=== PATIENT | male | born 1960 | race Caucasian/White ===

== ENCOUNTER 2018-04-19 05:48 | Observation (INO) | payer OTHER ==
--- NOTE | 2018-04-17 18:57 | GHP ---
[f rep st] PREOP HISTORY AND PHYSICAL COMPLAINT: Right knee pain. HISTORY OF PRESENT ILLNESS: The patient is a 57-year-old male with a long history of right knee pain worsening with use and with time despite multiple conservative measures. X-ray exam reveals bone-on -bone osteoarthritic changes. He wishes to have surgery in order to resolve the problem. ALLERGIES: He lists no prior drug allergies. CURRENT MEDICATION: Included atorvastatin. PRIOR MEDICAL PROBLEMS: Include arthritis, blood clots, reflux, and gout. PRIOR SURGERIES: Include orthopedic surgery x3. SOCIAL HISTORY: He has never been a smoker. Moderate alcohol intake. PHYSICAL EXAMINATION: HEENT: Pupils equal, round and reactive to light. CHEST: Clear to auscultat ion. HEART: Regular rate and rhythm. ABDOMEN: Soft and nontender. EXTREMITIES: The patient has a valgus deformity across his knee as well as palpable bone spurring noted laterally. IMAGING DATA: X-ray exams revealed aaax-id-cimv arthritic changes. Wishes to have surgery in order to resolve the problem. ASSESSMENT: The patient is status post right knee osteoarthritis. PLAN: To take him to the operating room to undergo a right total knee replacement. /[id number]/MODL
[2018-04-19] MEDS ORDERED: LIDOCAINE 1% 2 ML INJ ID PRN (06:14)
[2018-04-19] MEDS ORDERED: LR 1,000 ML IV ONE (06:14)
[2018-04-19] MEDS ORDERED: POLYMYXIN B SULFATE 500,000 UNIT/10 ML SYR IRR ONE (06:40)
[2018-04-19] MEDS ORDERED: THROMBIN (BOVINE) 5,000 UNIT VIAL TP ONE ×2 (06:40→10:37)
[2018-04-19] MEDS ORDERED: CALCIUM CHLORIDE 1 GM/10 ML INJ ONE (06:40)
[2018-04-19] MEDS ORDERED: BUPIVACAINE/EPI 0.5% 30 ML SDV ONE (06:40)
[2018-04-19] MEDS ORDERED: BACITRACIN 50,000 UNITS/10 ML SYR IRR ONE (06:40)
[2018-04-19] MEDS ORDERED: ACETAMINOPHEN 500 MG TAB PO ONE (06:50)
[2018-04-19] MEDS ORDERED: ceFAZolin 2 GM/SWFI 2 GM/20 ML SYR IVP ONE (06:50)
[2018-04-19] MEDS ORDERED: ROPIVACAINE 0.2% 80 MG, EPINEPHrine 0.2 MG, KETOROLAC TROMETHAMINE 30 MG, morphINE 10 M... IU ONE (06:50)
[2018-04-19] MEDS ORDERED: TRANEXAMIC ACID 3,000 MG in NS (SYRINGE) 50 ML IRR ONE (06:50)
[2018-04-19] MEDS ORDERED: PREGABALIN 150 MG CAP PO ONE (06:50)
--- NOTE | 2018-04-19 06:50 | PDHPUP ---
History & Physical Update H&P update statement: This history and physical update is based on an assessment of the patient which was completed after admission or registration (within 24 hours), but prior to the surgery/procedure. H&P update: H&P reviewed & patient examined, no change in patient's condition since H&P completed
[2018-04-19] MEDS ORDERED: MIDAZOLAM 2 MG/2 ML VIAL IVP ONE (06:55)
--- NOTE | 2018-04-19 06:58 | PDANEPAE ---
ANE History of Present Illness DJD R knee s/f R TKA ANE Past Medical History - Cardiovascular History Hx Hypertension: No Hx Arrhythmias: No Hx Chest Pain: No Hx Coronary Artery / Peripheral Vascular Disease: No Hx CHF / Valvular Disease: No Hx Palpitations: No Cardiovascular History Comment: BORDERLINE HTN, CHOL RX - Pulmonary History Hx COPD: No Hx Asthma/Reactive Airway Disease: No Hx Recent Upper Respiratory Infection: No Hx Oxygen in Use at Home: No Hx Sleep Apnea: No Sleep Apnea Screening Result - Last Documented: Negative Pulmonary History Comment: NO CIG SMOKING: CHEWS TOBACCO -1 CAN/2 DAYS. - Neurologic History Hx Cerebrovascular Accident: No Hx Seizures: No Hx Dementia: No - Endocrine History Hx Diabetes: No - Renal History Hx Renal Disorders: No - Liver History Hx Hepatic Disorders: No - Neurological & Psychiatric Hx Hx Neurological and Psychiatric Disorders: No - Cancer History Hx Cancer: No - Congenital Disorder History Hx Congenital Disorders: No - GI History Hx Gastrointestinal Disorders: Yes Gastrointestinal History Comment: GERD-ZANTAC PRN - Other Health History Other Health History: OA -BILAT KNEE PAIN -ALEJANDRA R KNEE; DVT S/P TRAUMA KNEE - ANTICOAGS X 6 MOS. - Chronic Pain History Chronic Pain: Yes (KNEES) - Surgical History Prior Surgeries: L KNEE COMPLETE RECONSTRUCTION 1977;. R KNEE SX X4;. APPY CHILD ANE Review of Systems Review of Systems: - Exercise capacity METS (RN): 4 METS ANE Patient History - Allergies Allergies/Adverse Reactions: No Known Allergies Allergy (Verified 04/06/18 16:09) - Home Medications Home medications: home medication list seen and reviewed Home Medications: Acetaminophen [Tylenol 325mg (*)] 325 mg PO DAILY PRN 04/06/18 [Last Taken Unknown] Atorvastatin Calcium [Lipitor 10 mg (*)] 10 mg PO HS 04/06/18 [Last Taken Unknown] Herbals/Supplements -Info Only 1 ea PO DAILY 04/06/18 [Last Taken Unknown] Ranitidine HCl [Zantac] 150 mg PO DAILY PRN 04/06/18 [Last Taken Unknown] - NPO status NPO Status: no food or drink >8 hours NPO Since - Liquids (Date): 04/18/18 NPO Since - Liquids (Time): 23:00 NPO Since - Solids (Date): 04/18/18 NPO Since - Solids (Time): 19:00 - Anes Hx Anes Hx: no prior problems - Smoking Hx Smoking Status: Current every day smoker (does not smoke-chewing tobacco only) Marijuana use: No - Alcohol Use Alcohol Use: Occasionally - Family Anes Hx Family Anes Hx: none ANE Labs/Vital Signs - Labs - CBC WBC: reivewed and okay - Vital Signs Blood Pressure: 148/94 Heart Rate: 58 Respiratory Rate: 18 O2 Sat (%): 93 Height: 193.04 cm Weight: 122.47 kg ANE Physical Exam - Airway Neck exam: FROM Mallampati Score: Class 2 Mouth exam: normal dental/mouth exam - Pulmonary Pulmonary: no respiratory distress - Cardiovascular Cardiovascular: regular rate and rhythym - ASA Status ASA Status: II ANE Anesthesia Plan Anesthesia Plan: spinal
[2018-04-19] MEDS ORDERED: PROPOFOL/EMULSION 500 MG/50 ML BOTTLE IV ONE ×2 (07:20→07:55)
[2018-04-19] MEDS ORDERED: fentaNYL 100 MCG/2 ML INJ ONE (07:20)
[2018-04-19] MEDS ORDERED: ceFAZolin 2 GM/DEXTROSE 100 ML IV ONE (07:30)
[2018-04-19] MEDS ORDERED: LIDOCAINE 2% JELLY 5 ML TUBE ONE (07:30)
[2018-04-19] MEDS ORDERED: DEXAMETHASONE 4 MG/ML VIAL ONE (07:53)
[2018-04-19] MEDS ORDERED: ONDANSETRON 4 MG/2 ML VIAL ONE (07:53)
[2018-04-19] MEDS ORDERED: ALBUTEROL 3 ML DEYVIAL IH PRN (08:06)
[2018-04-19] MEDS ORDERED: MEPERIDINE 25 MG/0.5 ML AMP IVP PRN (08:06)
[2018-04-19] MEDS ORDERED: PROMETHAZINE HCL 25 MG/ML INJ IVP PRN ×2 (08:06→09:03)
[2018-04-19] MEDS ORDERED: LR 500 ML IV PRN (08:06)
[2018-04-19] MEDS ORDERED: ONDANSETRON 4 MG/2 ML VIAL IVP PRN ×2 (08:06→09:03)
[2018-04-19] MEDS ORDERED: PHENYLEPHRINE HCL 100 MCG/ML SYR IVP PRN (08:06)
[2018-04-19] MEDS ORDERED: DEXAMETHASONE 4 MG/ML VIAL IVP PRN (08:06)
[2018-04-19] MEDS ORDERED: fentaNYL 100 MCG/2 ML INJ IVP PRN (08:06)
[2018-04-19] MEDS ORDERED: METOCLOPRAMIDE 10 MG/2 ML VIAL IVP PRN ×2 (08:06→09:03)
[2018-04-19] MEDS ORDERED: oxyCODONE IR 5 MG TAB PO PRN (08:06)
[2018-04-19] MEDS ORDERED: NALOXONE HCL 0.4 MG/ML INJ IVP PRN (08:06)
[2018-04-19] MEDS ORDERED: HYDROCODONE/APAP 5/325 TAB PO PRN (08:06)
[2018-04-19] MEDS ORDERED: LABETALOL HCL 5 MG/ML 20 ML MDV IVP PRN (08:06)
[2018-04-19] MEDS ORDERED: PROPOFOL 200 MG/20 ML VIAL ONE ×2 (08:29→08:42)
[2018-04-19] MEDS ORDERED: ONDANSETRON DISINTEGRATING 4 MG TAB PO PRN (09:03)
[2018-04-19] MEDS ORDERED: MAGNESIUM HYDROXIDE 30 ML UDCUP PO PRN (09:03)
[2018-04-19] MEDS ORDERED: LACTULOSE 20 GM/30 ML UDCUP PO PRN (09:03)
[2018-04-19] MEDS ORDERED: BISACODYL 10 MG SUPP PR PRN (09:03)
[2018-04-19] MEDS ORDERED: POLYETHYLENE GLYCOL 3350 17 GM PKT PO PRN (09:03)
[2018-04-19] MEDS ORDERED: diphenhydrAMINE 25 MG CAP PO PRN (09:03)
[2018-04-19] MEDS ORDERED: TEMAZEPAM 15 MG CAP PO PRN (09:03)
[2018-04-19] MEDS ORDERED: DIPHENOXYLATE/ATROPINE LOMOTIL 1 TAB PO PRN (09:03)
[2018-04-19] MEDS ORDERED: TAPENTADOL HCL 50 MG TAB PO PRN (09:03)
[2018-04-19] MEDS ORDERED: PROMETHAZINE HCL 25 MG SUPPR PR PRN (09:03)
--- NOTE | 2018-04-19 09:04 | POSTOPPROG ---
Post Op Note Date of Operation: 04/19/18 Surgeon: Emmy Cantu Operations Support Professionals: sebastien Anesthesiologist: mc Anesthesia: Epidural, IV Sedation Pre-op Diagnosis: r knee oa Procedure: r tkr Inf/Abcess present in the surg proc area at time of surgery?: No Depth: Deep Incisional (Fascial) EBL: 100-500
[2018-04-19] MEDS ORDERED: NON-FORMULARY NEW DRUG (Ranitidine Hcl [Zantac] 150 MG) PO PRN (09:06)
[2018-04-19] MEDS ORDERED: LR 1,000 ML IV SCH (09:30)
[2018-04-19] MEDS ORDERED: FAMOTIDINE 20 MG TAB PO PRN (09:45)
--- NOTE | 2018-04-19 09:57 | GOP ---
[f rep st] OPERATIVE REPORT DATE OF OPERATION: 04/19/2018 SURGEON: Emmy Cantu MD BOTTLED BEVERAGE INSPECTOR: Erick Yadav, CSFA, LSA, whose presence was medically necessary. ANESTHESIA: Epidural plus IV sedation. Adductor nerve block per surgeon's request. PREOPERATIVE DIAGNOSIS: Right knee osteoarthritis. POSTOPERATIVE DIAGNOSIS: Right knee osteoarthritis. PROCEDURE PERFORMED: Right total knee arthroplasty. FINDINGS: INDICATIONS: This is a 57-year-old male with a several-month history of right knee pain worsening wi th use and with time despite multiple conservative measures. X-ray exam reveals osteoarthritic torres es. He wishes to have surgery in order to resolve the problem. DESCRIPTION OF PROCEDURE: Patient brought to the operating room after the right side had been identi fied as the correct side by the patient, nurse and physician. Once in the operating room he was give n an epidural nerve block as well as an adductor nerve block. He was then placed supine on the opera ting room table and given IV sedation. A tourniquet was placed on the upper portion of the right thi gh with right lower extremity then sterilely prepped and draped in the usual fashion using NELDA/soluti on. Once prepped and draped, the limb was exsanguinated, tourniquet inflated to 250 mmHg. Incision was made on the anterior portion of the knee 1 handbreadth above and below the patella, with sharp di ssection carried down through the skin and subcutaneous layers and bleeding controlled using electroc autery. A medial parapatellar approach was used at the extensor mechanism, with the patella brought to the side but not everted. The Hoffa pad, the ACL as well as medial and lateral meniscus were mario arya. He was noted to have grade 2 chondral changes throughout the knee. A drill hole was made 1 cm anterior to the intercondylar notch with intramedullary guide placed within the femoral canal. The e nd cutting guide was set at 5 degrees of valgus and set to remove 10 mm of bone. Once pinned into pl rodney the intramedullary guide was removed and oscillating saw was used to remove the distal end of the femur. Osteotome was used to remove the remaining cartilage on the posterior femoral condyles. The sizing guide was placed onto the knee. Once pinned into place, measurements were taken though a siz e 7 seemed to fit best. Therefore, the guide was removed and a size 7, 4-in-1 cutting block was put into place. The anterior-posterior chamfer cuts were made. There was no notching of the anterior fe mur. Size 7 trial was put into place. The knee was able to achieve full extension, suggesting adequ ate amount of bone had been removed. The knee was brought back to flexion and lug holes were drilled for the femoral component. Femoral trial was then removed. The knee was brought to full flexion, t ibia subluxed anteriorly, and an external tibial guide was put into place, set in neutral varus valgu s, slight posterior slope. Set to remove 2 mm of bone from the low side of the tibia which was the l ateral side. Once pinned into place, a drop franklin was used to ensure proper alignment and a locking pi n was placed in the tibial cutting guide. Oscillating saw was used to remove the proximal portion of the tibia. Once achieving good guide removal of the bone a trial femur, tibia, and polyethylene ai er was put into place. The knee was able to achieve full extension, suggesting an adequate amount of bone being removed. The knee was brought back to full flexion where the trial was removed. Multipl e trials were placed on the proximal tibia and a size 7 seemed to fit best. It was placed in slight external rotation pinned into place. The keel punch passed through the guide without hitting any the hardware that had been retained within his tibia. The press-fit drill guide was then placed on the tibia and drill holes were made for press-fit component. The leg was brought to full extension. The tibia was then everted and held in place with towel clamps. The patella was measured to be 28 mm in thickness. Oscillating saw was used to remove the posterior portion of the patella, leaving 16 mm o f bone. Multiple sizes were trialed on the cut surface of bone, noted a 38 mm button seemed to fit b est. Therefore, a 38 mm guide was put in place and lug holes drilled for the patellar component. Al l surfaces were then thoroughly irrigated using a bulb syringe. With a size 7 Tritanium triathlon ti bial component put into place and a size 7 right cruciate retaining triathlon femoral press-fit compo nent was put into place. A trial liner was placed in the tibial tray. The knee brought to full exte nsion in order to pressurize the components. A 38 mm triathlon Tritanium asymmetric patella was then clamped into place and noted to fit securely. Multiple trials were placed in the tibial tray noted that an 11 mm insert seemed to fit best. Therefore a size 7, 11 mm triathlon X3 polyethylene compone nt was put into place and noted to fit securely. The knee was then injected into the posterior capsu le along the periosteum with joint cocktail and even in the extensor mechanism. Tranexamic acid was irrigated through the wound. Tourniquet was deflated at 42 minutes. Any excess bleeding was control led using electrocautery. The wound was then closed using 0 Vicryl suture in a figure of 8 type stit ch for the extensor mechanism and plasma gel placed intra-articularly. 0 Vicryl and 2-0 Vicryl sutur e used to close the subcutaneous layers, and a 3-0 V-Loc suture in a running subcuticular stitch was used to close the skin. 30 cc of Marcaine was infused around the incision itself. The wound was the n dressed with Steri-Strips, Xeroform, 4 x 4, Kerlix. Leg was completely undraped in the operating r oom, tourniquet removed from the thigh and an Rodney wrap placed around the knee. The patient was then transferred onto a stretcher, and sent to recovery room in good condition. TOURNIQUET TIME: 42 minutes. /[id number]/MODL
[2018-04-19] MEDS: traMADol 50 MG TAB PO SCH ×2 (11:57→17:20)
[2018-04-19] MEDS: ACETAMINOPHEN 325 MG TAB PO SCH ×2 (11:57→17:20)
[2018-04-19] MEDS: KETOROLAC 15 MG/1 ML SDV IVP SCH ×2 (11:57→17:19)
--- NOTE | 2018-04-19 12:05 | POSTANESTH ---
Post Anesthetic Evaluation Cardiovascular Status: Normal, Stable Respiratory Status: Tx Decrease in SpO2 (O2 by NC 2L) Level of Consciousness/Mental Status: Can Participate in Eval Pain Control: Adequate, Prn Tx Ordered Nausea/Vomiting Control: Adequate, Prn Tx Ordered Complications Possibly Related to Anesthesia: None Noted
[2018-04-19] MEDS: oxyCODONE IR 5 MG TAB PO PRN ×2 (13:02→22:45)
[2018-04-19] MEDS: ceFAZolin 2 GM/DEXTROSE 100 ML IV SCH ×2 (14:26→22:46)
[2018-04-19] MEDS ORDERED: ATORVASTATIN CALCIUM 10 MG TAB PO SCH (21:00)
[2018-04-19] MEDS: SENNOSIDES/DOCUSATE SODIUM TAB PO SCH (22:46)
[2018-04-19] MEDS: FAMOTIDINE 20 MG TAB PO SCH (22:46)
[2018-04-19] MEDS: CYCLOBENZAPRINE 10 MG TAB PO PRN (22:46)
[2018-04-20] MEDS: KETOROLAC 15 MG/1 ML SDV IVP SCH ×2 (01:05→05:44)
[2018-04-20] MEDS: traMADol 50 MG TAB PO SCH ×3 (01:06→12:32)
[2018-04-20] MEDS: ACETAMINOPHEN 325 MG TAB PO SCH ×3 (01:06→12:32)
[2018-04-20] MEDS: CYCLOBENZAPRINE 10 MG TAB PO PRN (07:16)
[2018-04-20] MEDS: oxyCODONE IR 5 MG TAB PO PRN ×3 (08:02→16:08)
[2018-04-20] MEDS: FAMOTIDINE 20 MG TAB PO SCH (08:02)
[2018-04-20] MEDS: SENNOSIDES/DOCUSATE SODIUM TAB PO SCH (08:02)
[2018-04-20] MEDS ORDERED: RIVAROXABAN 10 MG TAB PO SCH (09:00)
[2018-04-20 15:07] VITALS: BP 125/80
--- NOTE | 2018-04-20 15:14 | SOAPPROG ---
SOAP Progress Note Assessment/Plan: Assessment: Plan: Subjective: states he's ready for home dressing C&D with foot NVI DC to home Objective: Vital Signs Temp Pulse Resp BP Pulse Ox 36.9 C 60 14 125/80 H 94 04/20/18 15:06 04/20/18 15:06 04/20/18 15:06 04/20/18 15:06 04/20/18 15:06 Laboratory Results 04/20/18 04:43 04/19/18 04/20/18 04/21/18 05:59 05:59 05:59 Intake Total 3885 Output Total 6214 425 Balance 760 -425 ICD10 Worksheet Patient Problems: Problems Problem Status Onset Arthritis of knee Acute - ICD10 Problem Qualifiers (1) Arthritis of knee
--- NOTE | 2018-04-20 15:42 | ASMTCMCOM ---
CM Note CM Note Notes: PT rec home/outpatient. Pt pre-arranged with [facility] and is interested in home PT. Pt medically stable for d/c with [facility] PT. Referral and d/c meds sent in [employer]. [facility] to follow up with Dr Cantu office for orders. Date Signed: 04/20/2018 03:41 PM Electronically Signed By:ALY De Anda
--- NOTE | 2018-04-20 16:32 | ASDISCHSUM ---
Discharge Information Plan Status:Home with Home Health Medically Cleared to Leave: Discharge Date:04/20/2018 04:12 PM CM D/C Disposition:Home Health Service ADT D/C Disposition:[id number] Projected Discharge Date:04/20/2018 11:00 AM Transportation at D/C: Discharge Delay Reason: Follow-Up Date:04/20/2018 11:00 AM Discharge Slot: Final Diagnosis: Placement Information Referral Type:*Home Health Care Services Referral ID:[id number] Provider Name:[facility] ([facility] Address 1:[address] [address] Address 2: City:[place] Selection Factors: State:[place] Patient Contact Information Contact Name:SIRI Relationship:Friend Address: Work Phone: City: [facility] Phone: State/Zip Code: Email: Financial Information Financial Class:Medicare Advantage Plans Primary Plan Desc:[facility] [employer] PLANS Primary Plan Number:[id number] Secondary Plan Desc: Secondary Plan Number: Assessment Information [facility] CM Progress Note CM Note CM Note Notes: PT rec home/outpatient. Pt pre-arranged with [facility] and is interested in home PT. Pt medically stable for d/c with [facility] PT. [facility] to follow up with Dr Cantu office for orders. Date Signed: 04/20/2018 03:41 PM Electronically Signed By:ALY De Anda Intervention Information
== END 2018-04-20 16:12 | disposition home health service (06) ==
LOC: F3N 05:48
PROVIDERS: ADMIT Orthopaedic Surgery; ATTEND Orthopaedic Surgery
PROC: 6A550Z2 Pheresis of Platelets, Single (ICD-10-PCS; principal; 2018-04-19 07:15)
PROC: 0SRC06Z Replacement of Right Knee Joint with Oxidized Zirconium on Polyethylene Synthetic Substitute, Open Approach (ICD-10-PCS; principal; 2018-04-19 07:15)
DX: M17.11 Unilateral primary osteoarthritis, right knee (principal); I10 Essential (primary) hypertension; F17.290 Nicotine dependence, other tobacco product, uncomplicated
CPT/HCPCS: 27447; 73560; 88311; 97116; 97161; 97165; 97530; C1776; G0378; G8978; G8979; G8980; G8987; G8988; G8989; J0171; J0690; J1100; J1885; J2250; J2270; J2405; J2704; J2795; J3010; J2370